=== PATIENT | female | born 1940 | race Caucasian/White ===

== ENCOUNTER → 2016-07-02 | Outpatient (CLI) | payer OTHER ==
[~2016-07-02] MED LIST: ALENDRONATE SOD70 M1 PO; AMLODIPINE BENAZ PO; ANUSOL-HC2.5% R; ASPIR-LOW81 MG PO; ASPIRIN81 M1 PO; Anusol Hc,Anuco25 MG R; B-12100 MCG PO; BACTRIM DS 8001 TA1 PO; BACTRIM DS 8001 TAB PO; BACTROBAN2% TP; BENAZEPRIL40 MG PO; Bactrim Ds 8001 TAB PO; CARAFATE1 G1; CARAFATE1 GM/10 ML PO; CARDURA1 MG PO; CLOPIDOGREL75 MG PO; COLACE100 MG PO; DIOVAN320 MG PO; ENABLEX7.5 MG PO; FEOSOL325 MG PO; FLAGYL250 MG PO; FLAGYL500 MG PO; FOSAMAX40 MG PO; FUROSEMIDE40 MG PO; HALFPRIN162 MG PO; HEPARIN5000 UNIT/; HYDROCODONE BIT1 T11 PO; LOTREL 10 MG-401 CAP PO; MACROBID100 M1 PO; MESTINON60 MG PO; METOPROLOL50 MG PO; MIRALAX POWDER255 G1 PO; MULTIPLE VITAMI1 CAP PO; MULTIVITAMIN FO1 CAP PO; OCUVITE1 TA1 PO; OXYBUTYNIN5 MG PO; PEPCID20 MG PO; PEPCID40 MG PO; PLAVIX75 MG PO; PRILOSEC20 MG PO; PRILOSEC40 MG PO; PROCTOFOAM-HC 11 FOA RC; PROTONIX40 M1 PO; PROTONIX40 MG PO; SIMVASTATIN20 MG PO; SYNTHROID,LEV125 MCG PO; SYNTHROID0.125 MG PO; TEKTURNA300 MG PO; TUMS500 MG PO; TYLENOL 8 HOUR650 MG PO; VIBRAMYCIN100 MG PO; VITAMIN D1000 IU PO; VITAMIN D32000 I1 PO; ZANTAC 150150 MG PO
== END | disposition home or self-care (01) ==
LOC: CARD 07:59
DX: I25.10 Atherosclerotic heart disease of native coronary artery without angina pectoris (principal); I07.1 Rheumatic tricuspid insufficiency; I51.7 Cardiomegaly

== ENCOUNTER → 2016-09-18 | Outpatient (CLI) | payer OTHER ==
[2016-09-18 08:54] LABS: HEMOGLOBIN A1c 9.6 % (4.8-5.6)
== END | disposition home or self-care (01) ==
LOC: LAB 07:43
PROVIDERS: Family Medicine
DX: E11.9 Type 2 diabetes mellitus without complications (principal)

== ENCOUNTER 2016-11-03 09:25 | Inpatient (IN) | payer OTHER ==
[2016-11-03] VITALS (8 sets, daily range): BP systolic 95–157; BP diastolic 46–77
[~2016-11-03] VITALS: Ht 160 cm; Wt 90.9 kg
--- NOTE | ~2016-11-03 | WRIGHTHP ---
[place], [place] PATIENT HISTORY AND PHYSICAL EXAM NAME: STEVENSON VAUGHN [facility] #: [id number] UNIT #: [id number] ROOM: 503 DOCTOR: SANTIAGO MONTAGUE MD BIRTHDATE: [birth year] DOS: 11/03/2016 HISTORY OF PRESENT ILLNESS: 1. The patient is a 75-year-old female with a past medical history of diastolic type congestive heart failure, chronic pancytopenia and thrombocytopenia. 2. Cryptogenic liver cirrhosis, history of pulmonary nodule, history of coronary artery disease of the tribe vessels. 3. Myasthenia gravis. 4. Benign essential hypertension. 5. Mixed hyperlipidemia. 6. Hypothyroidism. 7. GERD and esophagitis. 8. Moderate protein-calorie malnutrition. 9. Obesity. 10. Type 2 diabetes mellitus. The patient presented to the Emergency Department when she was sent over by her PCP, Dr. Felix Church for rapid heart rate and atrial fibrillation. The patient was seen in the Emergency Department by Dr. Warner. The patient was also short of breath. In the ER, the patient was found to have atrial fibrillation with rapid ventricular response and acute kidney failure with elevation of BUN and creatinine. The patient is recommended for admission and further management and her residential driver, Dr. Weber was consulted. No chest pain or fainting episode. No other GI or urinary symptoms. REVIEW OF SYSTEMS: LUNGS: Some increasing shortness of breath. GASTROINTESTINAL: No nausea, vomiting, diarrhea or constipation. CARDIOVASCULAR: Complains of palpitations and no chest pains. SOCIAL HISTORY: Lives at home. Denies smoking cigarettes, alcohol and drug abuse. FAMILY HISTORY: Noncontributory. ALLERGIES: Known allergies to CODEINE AND PENICILLIN. PHYSICAL EXAMINATION: GENERAL APPEARANCE: The patient is alert and oriented x 3, obese, generalized weakness. HEENT AND NECK: Extraocular movements are intact. Sclerae are anicteric. Oral mucosa is moist and clean. No obvious facial weakness. Neck is supple without any lymphadenopathy. No thyromegaly. No JVD. No carotid arterial bruits. LUNGS: Clear to auscultation. No wheezing. No rhonchi. CARDIOVASCULAR SYSTEM: Irregularly irregular heart rate and rhythm on heart auscultation. ABDOMEN: Soft, nontender. No obvious organomegaly. Bowel sounds are present. No obvious herniation. EXTREMITIES: Without significant cyanosis or edema. Warm to touch. CENTRAL NERVOUS SYSTEM: Alert and oriented x 3. Cranial nerves II-XII are [place], [place] PATIENT HISTORY AND PHYSICAL EXAM [facility]: [id number] UNIT #: [id number] ROOM: [facility] DOCTOR: SANTIAGO MONTAGUE MD BIRTHDATE: [birth year] intact. Speech is normal. The patient is able to move all extremities. Normal muscle strength. Deep tendon reflexes are equal on both sides. Plantars were downgoing. LABORATORY DATA: Stool for occult blood positive. BUN and creatinine elevated to 33 and 2.4. White cell count at 4400, hemoglobin 11.4, platelets low at 95,000. IMPRESSION: 1. The patient presenting with atrial fibrillation with rapid ventricular response for which patient is on Cardizem and metoprolol and Dr. Weber, her residential driver is managing her. The patient is being started on anticoagulation with apixaban. 2. Chronic diastolic type congestive heart failure, presently compensated. Chest x-ray showed no acute abnormality. 3. Acute kidney failure, apparently acute tubular necrosis. The patient being hydrated with normal saline and BUN and creatinine are being monitored along with serum electrolytes. 4. Anemia with Hemoccult stool positive, we will continue to follow hemoglobin levels. 5. Chronic history of pancytopenia and thrombocytopenia, which can be related to hypersplenism related to liver cirrhosis. 6. Coronary artery disease of tribe vessels without any chest pains. 7. Benign essential hypertension with controlled blood pressures. 8. The patient with type 2 diabetes mellitus. Blood sugars appeared to be reasonably controlled at this time. 9. Overall, poor health and multiple medical problems. We will follow the patient very closely. SANTIAGO MONTAGUE MD CM:HISPHYS:PATIENT HISTORY AND PHYSICAL EXAMINATION 00 22 SANTIAGO MONTAGUE MD 11/04/16 4804 interface
--- NOTE | ~2016-11-03 | EKG ---
[place], [place] ELECTROCARDIOGRAM REPORT NAME: STEVENSON VAUGHN UNIT #: [id number] ROOM: [facility] DOCTOR: EYAD SPANN [facility] BIRTHDATE: [birth year] DOS: 11/03/2016 TIME: 0145 CONCLUSION: Atrial fibrillation with rapid ventricular response ____, left anterior hemiblock, nonspecific ST changes. BINA CASTANO MD CM:EKGRPT:ELECTROCARDIOGRAM REPORT 1622 1851 BINA CASTANO MD [facility]
--- NOTE | ~2016-11-03 | PR ---
[place], [place] PROGRESS NOTE NAME[facility] [id number] UNIT #: [id number] ROOM: 503 DOCTOR: EYAD SPANN [facility] BIRTHDATE: [birth year] DOS: 11/06/2016 SUBJECTIVE: The patient is feeling well. Basic rhythm is sinus and asymptomatic. OBJECTIVE: VITAL SIGNS: Stable. Heart rate is 63, sinus rhythm. Afebrile and blood pressure is 107/51. SKIN: Warm, not diaphoretic. LUNGS: No rales. HEART: S1, S2 regular. ABDOMEN: Soft. ASSESSMENT AND PLAN: First degree atrioventricular block. We will continue the current therapy and hemodynamically stable. I will follow the patient as an outpatient. BINA CASTANO MD CM:PNTRANS 1426 BINA CASATNO MD [facility] 11/06/16 2218 interface
--- NOTE | ~2016-11-03 | O ---
[place], [place] OPERATIVE NOTE NAME: STEVENSON VAUGHN UNIT #: [id number] ROOM: 503 DOCTOR: EYAD SPANN [facility] BIRTHDATE: [birth year] DOS: 11/05/2016 The patient had a transesophageal echocardiogram, reports is as follows. INTERPRETATION: 2+ mitral regurgitation, 3+ tricuspid regurgitation. Left ventricular contraction is good. Left atrium is enlarged. Left atrial appendix and left atrial, no thrombus noted. Left atrial appendix contracture fairly good. COLOR FLOW AND CONTRAST STUDY: No atrial or ventricular septal defect noted. Aortic valve is intact. Opening is good. No other regurgitation. No evidence of ventricular thrombus noted. Some pericardial effusion noted. ____ 200 biphasic and 200 joules, after giving the Cardizem bolus and drip of 10 mg then subsequently 5 mg. Unable to convert to sinus rhythm synchronized first time, second time we were able to convert it to sinus rhythm. Regular rhythm with first-degree AV block. EKG is pending. We will continue the Cardizem drip at 5 mg/hour. We will continue to monitor. After, hopefully 12 to 24 hours, convert it to by mouth and keep her in sinus at that time. Since the heart rate is more than 50, no compromise hemodynamically. At this time, we do not feel that the patient needs the pacemaker, and we had a standby, but no further need for the pacemaker at this time. Successful cardioversion and converted to sinus rhythm. The patient is on anticoagulation, and we will put her back on Eliquis 5 mg now and b.i.d. BINA CASTANO MD CM:OPRECORD:OPERATIVE NOTE 1421 SANTIAGO MONTAGUE MD and CRISS CASTANO MD [facility] 11/05/16 1421 interface
--- NOTE | ~2016-11-03 | CON ---
[place], [place] REPORT OF CONSULTATION [id number] UNIT #: [id number] ROOM: 503 DOCTOR: EYAD SPANN [facility] BIRTHDATE: [birth year] DOS: 11/04/2016 CARDIOLOGY CONSULTATION HISTORY OF PRESENT ILLNESS: History of coronary artery disease, coronary stent, hypertension, diabetes, nocturnal dyspnea with rapid ventricular response, and also occasional severe bradycardia in 30s and 40s. Tachy-bradycardia, sick sinus syndrome maybe considered. We will evaluate the patient for YAN and cardioversion if there is no intracardiac thrombus and unable to convert and consideration may be given for atrial fibrillation. If extended bradycardia, consideration also may be given for pacemaker. PHYSICAL EXAMINATION: SKIN: Warm and dry. NECK: Supple. MENTAL STATUS: Good. LUNGS: No rales. HEART: S1, S2 regular. ABDOMEN: Soft. NEUROLOGIC: No focal neurological deficits noted. Workup is in progress. BINA CASTANO MD CM:CONSTR:REPORT OF CONSULTATION 135 11/05/16 1240 interface
--- NOTE | ~2016-11-03 | DS ---
[place], [place] DISCHARGE SUMMARY NAME: STEVENSON VAUGHN [facility] #: [id number] UNIT #: [id number] ROOM: 503 DOCTOR: SANTIAGO MONTAGUE MD BIRTHDATE: [birth year] DOS: 11/06/2016 DISCHARGE DIAGNOSES: 1. Atrial fibrillation with rapid ventricular response, converted to normal sinus rhythm with cardioversion by Dr. Weber. 2. YAN to look for cardiac thrombus. 3. Chronic diastolic type compensated congestive heart failure. 4. Chronic kidney disease stage 4. 5. Hemoccult positive stools, needs to be worked up as an outpatient. Hemoglobin stable at 11.8. 6. Pancytopenia and thrombocytopenia, which may be related to hypersplenism related to liver cirrhosis. 7. History of coronary artery disease of [place] vessels. 8. Benign essential hypertension. 9. Type 2 diabetes mellitus. 10. Overall multiple medical problems and poor health. 11. Previous history of pulmonary nodule. 12. Myasthenia gravis. 13. Mixed hyperlipidemia. 14. Hypothyroidism. 15. Gastroesophageal reflux disease and esophagitis. 16. Moderate protein-calorie malnutrition. 17. Obesity. 18. The patient has stage IV chronic kidney disease with an EGFR of 25, which stayed stable during her stay at the hospital. HOSPITAL COURSE: 1. The patient was admitted to the Emergency Department when she presented with rapid heart rate detected by Dr. Felix Church, her primary care physician. In the ER, the patient was seen by Dr. Warner was found to be in atrial fibrillation with rapid ventricular response. The patient was anticoagulated and Dr. Weber, her lamp stack developer was consulted. Dr. Weber took the patient for YAN and later on cardioverted the patient in normal sinus rhythm. The patient is somewhat borderline bradycardic to low normal heart rate now. Heart rate is ranging 60 beats per minute with normal sinus rhythm. Dr. Weber also kept the patient on beta errol, metoprolol and Cardizem and her blood pressures are staying low normal to lower side. I stopped the patient's lisinopril because blood pressure is staying low because of addition of diltiazem and metoprolol. The patient has been cleared for discharge to home by Dr. Weber and she has been asked to see Dr. Felix Church on Thursday or Thursday. 2. Chronic diastolic type compensated congestive heart failure. 3. Hemoccult positive stools, but hemoglobin stable at 11.8, can be worked up as an outpatient. 4. Chronic history of pancytopenia and thrombocytopenia and also cryptogenic facility and also liver cirrhosis. 5. Coronary artery disease of the [place] vessels without chest pains. 6. Benign essential hypertension with controlled blood pressures. 7. Type 2 diabetes mellitus. Blood sugars are monitored and treated. 8. Overall poor health and poor long-term prognosis including hypoproteinemia. 9. The patient has moderate protein-calorie malnutrition along with multiple [place], [place] DISCHARGE SUMMARY NAME: STEVENSON VAUGHN UNIT #: [id number] ROOM: [facility] DOCTOR: EDDI SPANN,SANTIAGO [place] BIRTHDATE: [birth year] medical problems as mentioned above. The patient has stage IV chronic kidney disease with an EGFR of 25, which stayed stable during her stay at the hospital. LABORATORY DATA: The iFOBT occult bloods were positive. DISCHARGE MANAGEMENT: Rythmol 150 mg 3 times a day, metformin stopped because of patient's stage 4 chronic kidney disease, Lactulose 10 grams b.i.d., Amitiza 24 mcg b.i.d., spironolactone 25 mg b.i.d., Colace 100 mg at bedtime, levothyroxine 125 mcg daily, famotidine 40 mg a day, furosemide 20 mg a day, oxybutynin 5 mg a day, potassium chloride 20 mEq daily, valsartan 320 mg daily, 1 mg daily, metoprolol succinate 25 mg daily, Diltiazem CD 240 mg daily. Follow up with Dr. Felix Church on Thursday or Thursday. One hour spent on the patient's discharge. SANTIAGO MONTAGUE MD CM:DISCHKATERINE 193 SANTIAGO MONTAGUE MD 11/07/16 0028 interface
--- NOTE | ~2016-11-03 | CON ---
[place], [place] REPORT OF CONSULTATION [id number] UN[facility] #: [id number] ROOM: 503 [facility] [birth year] DOS: 11/04/2016 HISTORY OF PRESENT ILLNESS: The patient is a 75-year-old female came in with a history of palpitations and found to be in atrial fibrillation with a rapid ventricular response, and . The patient has hypertension, gastroesophageal reflux disease, thyroid disease, and coronary artery disease. The patient had coronary stenting done in 2012. The patient is status post D and C, and appendectomy. I know this patient for a quite a few years and I placed the stent in 2012. The patient also has diabetes, hypertension, and coronary artery disease. REVIEW OF SYSTEMS: No syncope or presyncope. PHYSICAL EXAMINATION: VITAL SIGNS: Heart rate is about 100, atrial fibrillation with rapid ventricular response, irregularly irregular. SKIN: Warm, not diaphoretic. NECK: Supple. No jugular venous distention. LUNGS: No rales. Diminished breath sounds at the bases. ABDOMEN: Soft. SKIN: Color is good. Not diaphoretic. No cyanosis. IMPRESSION AND PLAN: The patient is on anticoagulation and consideration will be to optimize the medical therapy to keep in sinus rhythm. The patient has occasional bradycardia and paroxysmal atrial fibrillation with sick sinus syndrome maybe considered. Consideration will be given for the YAN and cardioversion to rule out cardiac thrombus. If bradycardia persistent, consideration also may be given for pacemaker. If unable to convert to sinus rhythm, since the patient's coronary artery symptomatic. Atrial fibrillation ablation also may be considered. All discussed with the patient. Thank you very much for asking me to see that patient. I will follow the patient with you. BINA CASTANO MD CM:CONSTR:REPORT OF CONSULTATION 1345 11/05/16 1233 interface
--- NOTE | ~2016-11-03 | PR ---
[place], [place] PROGRESS NOTE NAME: STEVENSON VAUGHN UNIT #: [id number] ROOM: 503 DOCTOR: SANTIAGO MONTAGUE MD BIRTHDATE: [birth year] DOS: 11/05/2016 SUBJECTIVE: The patient is status post cardioversion, now in normal sinus rhythm. PHYSICAL EXAMINATION: GENERAL APPEARANCE: The patient is alert and oriented x 3, in no visible distress. Generalized weakness. VITAL SIGNS: VITAL SIGNS: Blood pressure 111/42, heart rate of 61 beats per minute, breathing 18 times per minute, temperature 98 degrees Fahrenheit. HEENT AND NECK: Exam within normal limits. CARDIOVASCULAR SYSTEM: Heart rate is regular in rate and rhythm. S1 and S2 normally audible. LUNGS: Clear to auscultation. ABDOMEN: Soft, nontender. No obvious organomegaly. Bowel sounds are present. EXTREMITIES: Without significant cyanosis or edema. IMPRESSION: 1. The patient with chronic atrial fibrillation with rapid ventricular response, now cardioverted in a normal sinus rhythm by Dr. Weber, her wool supplier. She still remains on Cardizem and metoprolol. The patient was scheduled for a YAN prior to the cardioversion and treated with propafenone and Rythmol and the patient is anticoagulated with Eliquis, which was put on hold for the procedure. 2. Chronic diastolic type compensated congestive heart failure. 3. Acute tubular necrosis and acute kidney failure, now improved related to acute tachycardia and atrial fibrillation, improving with hydration with normal saline. 4. Hemoglobin 11.8, although the patient has Hemoccult positive stools. This will need to be worked up as an outpatient, does not appear to be an acute problem at this time. Hemoglobin is stable. 5. Chronic history of pancytopenia and thrombocytopenia may be related to hypersplenism related to liver cirrhosis. 6. Coronary artery disease of [place] vessels without chest pain. 7. Benign essential hypertension with controlled blood pressures. 8. Type 2 diabetes mellitus and monitoring blood sugars and treat accordingly. 9. Overall, poor health condition and poor long-term prognosis because of multiple medical problems. [place], [place] PROGRESS NOTE NAME: STEVENSON VAUGHN UNIT #: [id number] ROOM: 503 DOCTOR: SANTIAGO MONTAGUE MD BIRTHDATE: [birth year] SANTIAGO MONTAGUE MD CM:ASHLEY 99 162 SANTIAGO MONTAGUE MD 11/06/16 1803 interface
--- NOTE | ~2016-11-03 | PR ---
[place], [place] PROGRESS NOTE NAME: [facility] [id number] UNIT #: [id number] ROOM: 503 DOCTOR: EYAD SPANN [facility] BIRTHDATE: [birth year] DOS: 11/04/2016 SUBJECTIVE: No angina, no evidence of syncope or presyncope. OBJECTIVE: VITAL SIGNS: Heart rate is increasing now, about 80 to 100. Still atrial fibrillation. Blood pressure 102/52. Afebrile. Respiratory rate 20. SKIN: Warm. Not diaphoretic. Color is good. NECK: Supple. LUNGS: No rales. HEART: S1 and S2, irregular. ABDOMEN: Soft. LABORATORY DATA: Electrolytes unremarkable. Creatinine is elevated at 2.48. BUN 33. WBC 4.4, hemoglobin 11.4. IMPRESSION: Hemodynamically stable, however. We will resume back her Cardizem and metoprolol in case the rate starts increasing. The patient will have YAN evaluating for an intracardiac thrombus. If there is no intracardiac thrombus, we will do the cardioversion. The patient with history of severe bradycardia, underlying sick sinus syndrome is considered. We will consider permanent pacemaker at that time. The patient is off all her medications including diuretics. The patient also on propafenone that is Rythmol 150 mg 3 times a day. The patient converted to sinus rhythm. The patient is on Eliquis, which is on hold right now. We will put her back on once the procedure is done tomorrow. Explained to the patient and the family. BINA CASTANO MD CM:PNTRANS 1830 1444 BIAN CASTANO MD [facility] 11/05/16 1443 interface
[2016-11-03 09:47] LABS: BASO % 0.4 % (0.0-1.0); EOS # 0.1 10*3/uL (0.0-0.4); EOS % 2.2 % (1.0-4.0); HEMOGLOBIN 12.8 g/dl (12.0-16.0); LYMPH # 0.4 10*3/uL (1.3-4.4); LYMPH % 12.9 % (27.0-41.0); MEAN CORPUSCULAR HGB 32.2 pg (27.0-31.0); MEAN CORPUSCULAR HGB CONC 32.8 g/dl (33.0-37.0); MEAN PLATELET VOLUME 10.2 fl (9.6-12.3); MONO # 0.3 10*3/uL (0.1-1.0); MONO % 10.4 % (3.0-9.0); NEUT # 2.1 10*3/uL (2.3-7.9); NEUT % 74.1 % (47.0-73.0); PLATELET COUNT AUTOMATED 79 10*3/uL (130-400); RED BLOOD COUNT 3.98 10*6/uL (4.10-5.10); RED CELL DISTRI WIDTH 15.9 % (0-14.5); WHITE BLOOD COUNT 2.8 10*3/uL (4.8-10.8)
[2016-11-03 10:02] LABS: ACT PARTIAL THROMBO TIME 28.7 SECONDS (20.8-31.5); INTERNATIONAL NORM RATIO 1.2 (2.0-3.5)
[2016-11-03 10:03] LABS: BUN 27 mg/dl (7-24); CHLORIDE 107 mmol/L (98-107); CREATININE 1.76 mg/dL (0.55-1.02); POTASSIUM 4.5 mmol/L (3.5-5.1); SODIUM 141 mmol/L (136-145)
[2016-11-03 10:04] LABS: TROPONIN I < 0.015 ng/ml (<0.045)
[2016-11-03 10:09] LABS: THYROID STIM HORMONE (HS) 0.289 uIU/ml (0.358-4.75)
[2016-11-03] MEDS ORDERED: LASIX20 MG PO (12:19)
[2016-11-03] MEDS ORDERED: DOXAZOSIN MESYLA1 MG PO (12:45)
[2016-11-03] MEDS ORDERED: BENAZEPRIL HYDR40 MG PO (12:46)
[2016-11-03] MEDS ORDERED: K-TAB20 MEQ PO (12:46)
[2016-11-03] MEDS ORDERED: METFORMIN500 MG PO (12:47)
[2016-11-03] MEDS ORDERED: ALDACTONE25 M1 PO (12:47)
[2016-11-03] MEDS ORDERED: AMITIZA24 MCG PO (12:47)
[2016-11-03] MEDS ORDERED: GENERLAC10 GM/15 M PO (12:48)
[2016-11-03] MEDS ORDERED: PROPAFENONE HC150 MG PO (14:00)
[2016-11-04] VITALS: BP 97/50
[2016-11-04 06:23] LABS: EOS # 0.1 10*3/uL (0.0-0.4); EOS % 2.3 % (1.0-4.0); HEMATOCRIT 34.8 % (37.0-47.0); HEMOGLOBIN 11.4 g/dl (12.0-16.0); LYMPH # 0.8 10*3/uL (1.3-4.4); LYMPH % 17.9 % (27.0-41.0); MEAN CELL VOLUME 97.5 fl (81.0-99.0); MEAN CORPUSCULAR HGB 31.9 pg (27.0-31.0); MEAN CORPUSCULAR HGB CONC 32.8 g/dl (33.0-37.0); MEAN PLATELET VOLUME 11.3 fl (9.6-12.3); MONO # 0.5 10*3/uL (0.1-1.0); NEUT % 67.6 % (47.0-73.0); PLATELET COUNT AUTOMATED 95 10*3/uL (130-400); RED BLOOD COUNT 3.57 10*6/uL (4.10-5.10); RED CELL DISTRI WIDTH 15.9 % (0-14.5); WHITE BLOOD COUNT 4.4 10*3/uL (4.8-10.8)
[2016-11-04 07:35] LABS: CREATININE 2.48 mg/dL (0.55-1.02); MAGNESIUM 1.9 mg/dL (1.5-2.1); POTASSIUM 4.8 mmol/L (3.5-5.1); TOTAL PROTEIN 6.7 gm/dL (6.4-8.2)
[2016-11-04 08:00] VITALS: BP 104/50
[2016-11-04 12:00] VITALS: BP 90/50
[2016-11-04 16:00] VITALS: BP 102/52
[2016-11-04 20:00] VITALS: BP 135/56
[2016-11-05] VITALS (9 sets, daily range): BP systolic 71–111; BP diastolic 32–52
[2016-11-05 06:46] LABS: EOS # 0.1 10*3/uL (0.0-0.4); EOS % 2.2 % (1.0-4.0); HEMOGLOBIN 11.8 g/dl (12.0-16.0); LYMPH # 0.5 10*3/uL (1.3-4.4); LYMPH % 18.3 % (27.0-41.0); MEAN CELL VOLUME 97.1 fl (81.0-99.0); MEAN CORPUSCULAR HGB CONC 31.9 g/dl (33.0-37.0); MEAN PLATELET VOLUME 11.6 fl (9.6-12.3); MONO # 0.3 10*3/uL (0.1-1.0); MONO % 10.4 % (3.0-9.0); NEUT # 1.8 10*3/uL (2.3-7.9); NEUT % 68.7 % (47.0-73.0); PLATELET COUNT AUTOMATED 84 10*3/uL (130-400); RED BLOOD COUNT 3.81 10*6/uL (4.10-5.10); RED CELL DISTRI WIDTH 16.2 % (0-14.5); WHITE BLOOD COUNT 2.7 10*3/uL (4.8-10.8)
[2016-11-05 07:10] LABS: CREATININE 1.81 mg/dL (0.55-1.02); POTASSIUM 4.5 mmol/L (3.5-5.1)
[2016-11-06] VITALS: BP 105/34
[2016-11-06 06:28] LABS: CREATININE 2.25 mg/dL (0.55-1.02); POTASSIUM 4.9 mmol/L (3.5-5.1)
[2016-11-06 08:00] VITALS: BP 104/60; BP 140/76
[2016-11-06 12:00] VITALS: BP 107/51
[2016-11-06 16:00] VITALS: BP 97/66
[2016-11-06] MEDS ORDERED: METOPROLOL SUCC25 M2 PO (19:19)
[2016-11-06] MEDS ORDERED: DILTIAZEM CD240 MG PO (19:19)
== END 2016-11-06 20:36 | disposition home health service (06) | DRG 308 ==
LOC: ED 09:25 → 5E 10:43 → EDHOLD 10:43 → 5E 10:59
PROVIDERS: Emergency Medicine; Internal Medicine Cardiovascular Disease; ADMIT Internal Medicine
PROC: 5A2204Z Restoration of Cardiac Rhythm, Single (ICD-10-PCS; principal; 2016-11-05)
DX: I44.0 Atrioventricular block, first degree (principal); N17.0 Acute kidney failure with tubular necrosis; D61.818 Other pancytopenia; N18.4 Chronic kidney disease, stage 4 (severe); E44.0 Moderate protein-calorie malnutrition; E11.22 Type 2 diabetes mellitus with diabetic chronic kidney disease; I50.32 Chronic diastolic (congestive) heart failure; D69.6 Thrombocytopenia, unspecified; I13.0 Hypertensive heart and chronic kidney disease with heart failure and stage 1 through stage 4 chronic kidney disease, or unspecified chronic kidney disease; I25.10 Atherosclerotic heart disease of native coronary artery without angina pectoris; K21.9 Gastro-esophageal reflux disease without esophagitis; E03.9 Hypothyroidism, unspecified; D72.819 Decreased white blood cell count, unspecified; E78.2 Mixed hyperlipidemia; E66.9 Obesity, unspecified; D73.1 Hypersplenism; K74.60 Unspecified cirrhosis of liver; G70.00 Myasthenia gravis without (acute) exacerbation; K21.0 Gastro-esophageal reflux disease with esophagitis; Z79.899 Other long term (current) drug therapy; Z68.35 Body mass index [BMI] 35.0-35.9, adult; Z85.42 Personal history of malignant neoplasm of other parts of uterus; Z90.49 Acquired absence of other specified parts of digestive tract; Z90.710 Acquired absence of both cervix and uterus; Z95.5 Presence of coronary angioplasty implant and graft; Z88.0 Allergy status to penicillin; Z88.5 Allergy status to narcotic agent; Z83.3 Family history of diabetes mellitus; Z82.49 Family history of ischemic heart disease and other diseases of the circulatory system

== ENCOUNTER 2016-11-12 09:41 | Emergency (ER) | payer OTHER ==
[~2016-11-12] VITALS: Ht 160 cm; Wt 90.7 kg
[~2016-11-12 09:41] MED LIST changes: +ALDACTONE25 M1 PO; +AMITIZA24 MCG PO; +BENAZEPRIL HYDR40 MG PO; +DILTIAZEM CD240 MG PO; +DOXAZOSIN MESYLA1 MG PO; +GENERLAC10 GM/15 M PO; +K-TAB20 MEQ PO; +LASIX20 MG PO; +METFORMIN500 MG PO; +METOPROLOL SUCC25 M2 PO; +PROPAFENONE HC150 MG PO
[2016-11-12 09:52] VITALS: BP 176/82
[2016-11-12 10:43] LABS: BASO % 0.4 % (0.0-1.0); EOS # 0.1 10*3/uL (0.0-0.4); EOS % 3.4 % (1.0-4.0); HEMATOCRIT 36.3 % (37.0-47.0); LYMPH # 0.5 10*3/uL (1.3-4.4); LYMPH % 19.7 % (27.0-41.0); MEAN CELL VOLUME 95.3 fl (81.0-99.0); MEAN CORPUSCULAR HGB 31.5 pg (27.0-31.0); MEAN CORPUSCULAR HGB CONC 33.1 g/dl (33.0-37.0); MEAN PLATELET VOLUME 10.4 fl (9.6-12.3); MONO # 0.2 10*3/uL (0.1-1.0); MONO % 7.7 % (3.0-9.0); NEUT # 1.6 10*3/uL (2.3-7.9); NEUT % 68.4 % (47.0-73.0); PLATELET COUNT AUTOMATED 106 10*3/uL (130-400); RED BLOOD COUNT 3.81 10*6/uL (4.10-5.10); RED CELL DISTRI WIDTH 15.9 % (0-14.5); WHITE BLOOD COUNT 2.3 10*3/uL (4.8-10.8)
[2016-11-12 10:59] LABS: ACT PARTIAL THROMBO TIME 28.3 SECONDS (20.8-31.5); INTERNATIONAL NORM RATIO 1.2 (2.0-3.5)
[2016-11-12 11:00] LABS: ALBUMIN 3.1 gm/dl (3.1-4.5); ALKALINE PHOSPHATASE 81 U/L (45-117); BUN 22 mg/dl (7-24); CHLORIDE 109 mmol/L (98-107); CREATININE 1.59 mg/dL (0.55-1.02); POTASSIUM 4.1 mmol/L (3.5-5.1); SGOT/AST 39 IU/L (3-35); SGPT/ALT 25 U/L (12-78); SODIUM 144 mmol/L (136-145); TOTAL PROTEIN 7.7 gm/dL (6.4-8.2); TROPONIN I < 0.015 ng/ml (<0.045)
[2016-11-12] MEDS ORDERED: ELIQUIS2.5 M1 PO (12:38)
== END 2016-11-12 14:17 | disposition home or self-care (01) ==
LOC: ED 09:41
PROVIDERS: Nurse Practitioner
DX: I48.91 Unspecified atrial fibrillation (principal); Z90.49 Acquired absence of other specified parts of digestive tract; Z90.710 Acquired absence of both cervix and uterus; Z95.5 Presence of coronary angioplasty implant and graft; Z79.899 Other long term (current) drug therapy; Z88.0 Allergy status to penicillin; Z88.5 Allergy status to narcotic agent